=== PATIENT | female | born 1945 | race Hispanic/Latino ===

== ENCOUNTER 2017-08-13 06:30 | Day surgery (SDC) | payer OTHER ==
[~2017-08-13] VITALS: Ht 154.9 cm; Wt 88.9 kg
[~2017-08-13 06:30] MED LIST: ATOR40TA71 PO; FAMO20TA8 PO; LOSA1TAB54 PO; METO-391 PO; NITR100C PO; SODIUM CHLORIDE 0.9% 1000ML 1,000 ML IV ONE; SUCR1TAB2 PO
[2017-08-13 07:31] VITALS: BP 118/55
[2017-08-13] MEDS ORDERED: PROPOFOL 10 MG/ML 20ML VIAL IV ONE (08:29)
== END 2017-08-13 09:25 | disposition home or self-care (01) ==
LOC: DAH 06:30 → ENDO 06:30
PROVIDERS: ATTEND Internal Medicine Gastroenterology
DX: K29.50 Unspecified chronic gastritis without bleeding (principal); E78.5 Hyperlipidemia, unspecified; I10 Essential (primary) hypertension; Z90.49 Acquired absence of other specified parts of digestive tract; K21.9 Gastro-esophageal reflux disease without esophagitis; Z98.890 Other specified postprocedural states; Z79.899 Other long term (current) drug therapy; Z68.38 Body mass index [BMI] 38.0-38.9, adult; Z88.0 Allergy status to penicillin
CPT/HCPCS: 43237; 43239; 88305; 88312; 93005; A4606; J2704; J7030; 43231

== ENCOUNTER → 2020-03-17 | Outpatient (CLI) | payer MEDICARE ==
[~2020-03-17] MED LIST changes: +IOHEXOL-350 75 ML VIAL IV ONE; -SODIUM CHLORIDE 0.9% 1000ML 1,000 ML IV ONE
== END | disposition home or self-care (01) ==
LOC: RAH 10:00
PROVIDERS: ATTEND Family Medicine
DX: E04.1 Nontoxic single thyroid nodule (principal); D17.1 Benign lipomatous neoplasm of skin and subcutaneous tissue of trunk; R91.1 Solitary pulmonary nodule
CPT/HCPCS: 71270; Q9967

== ENCOUNTER → 2020-04-13 | Outpatient (CLI) | payer MEDICARE ==
[~2020-04-13] MED LIST changes: -IOHEXOL-350 75 ML VIAL IV ONE
== END | disposition home or self-care (01) ==
LOC: RAH 13:33
PROVIDERS: ATTEND Family Medicine
DX: E04.2 Nontoxic multinodular goiter (principal)
CPT/HCPCS: 76536

== ENCOUNTER → 2021-05-16 | Outpatient (CLI) | payer MEDICARE | END | disposition home or self-care (01) | LOC: RAH 10:11 | PROVIDERS: ATTEND Family Medicine | DX: R22.41 Localized swelling, mass and lump, right lower limb (principal) | CPT/HCPCS: 93971 ==